=== PATIENT | female | born 1995 | race Caucasian/White ===

== ENCOUNTER 2018-08-20 15:53 | Emergency (ER) | payer SELFPAY ==
[~2018-08-20] VITALS: Ht 162.6 cm; Wt 54.4 kg
--- OUTSIDE RECORDS SUMMARY | 2018-08-20 15:59 | XMS REPORT ---
Author Author AMBREEN BARRIOS [facility] Address [address] [place] [address] Care Team Providers Care Rehab/Pre Vocational Counselor Name Role Phone AMBREEN BARRIOS Unavailable PROBLEMS Type Condition ICD9-CM Code OZX49-WU Code Onset Dates Condition Status SNOMED Code Problem Screening examination for venereal disease V74.5 Active 468991780 Problem Routine gynecological examination V72.31 Active 724963618916735 Problem Other general counseling and advice for contraceptive management V25.09 Active 063290293 Problem Unspecified pediculosis 132.9 Active 37913523 Problem Major depressive disorder, recurrent episode, severe, without mention of psychotic behavior 296.33 Active 17069080 Problem Dyspareunia 625.0 Active 40249099 Problem Problems related to high-risk sexual behavior V69.2 Active 361297146 Problem Posttraumatic stress disorder 309.81 Active 46986200 Problem Unspecified vaginitis and vulvovaginitis 616.10 Active 297869136 ALLERGIES Unknown Allergies SOCIAL HISTORY No smoking Hx information available PLAN OF CARE Activity Details Follow Up 48-72 hours Reason: VITAL SIGNS MEDICATIONS Unknown Medications RESULTS No Results PROCEDURES Procedure Date Ordered Related Diagnosis Body Site TB INTRADERMAL 2016-08-26 N/A TB INTRADERMAL TEST Aug 26, 2016 IMMUNIZATIONS No Known Immunizations
--- OUTSIDE RECORDS SUMMARY | 2018-08-20 15:59 | XMS REPORT ---
Author Author AMBREEN BARRIOS [facility] Address [address] [place] [address] Care Team Providers Care Batt Packer Name Role Phone AMBREEN BARRIOS Unavailable PROBLEMS Type Condition ICD9-CM Code ZVS50-KE Code Onset Dates Condition Status SNOMED Code Problem Screening examination for venereal disease V74.5 Active 039004586 Problem Routine gynecological examination V72.31 Active 558548329231873 Problem Other general counseling and advice for contraceptive management V25.09 Active 645806823 Problem Unspecified pediculosis 132.9 Active 48201265 Problem Major depressive disorder, recurrent episode, severe, without mention of psychotic behavior 296.33 Active 87407432 Problem Dyspareunia 625.0 Active 13016512 Problem Problems related to high-risk sexual behavior V69.2 Active 537571243 Problem Posttraumatic stress disorder 309.81 Active 13769321 Problem Unspecified vaginitis and vulvovaginitis 616.10 Active 027919633 ALLERGIES Unknown Allergies SOCIAL HISTORY No smoking Hx information available PLAN OF CARE Activity Details Follow Up 48-72 hours Reason: VITAL SIGNS MEDICATIONS Unknown Medications RESULTS No Results PROCEDURES Procedure Date Ordered Related Diagnosis Body Site TB INTRADERMAL TEST Aug 17, 2016 IMMUNIZATIONS No Known Immunizations
--- OUTSIDE RECORDS SUMMARY | 2018-08-20 16:00 | XMS REPORT | Continuity of Care Document ---
Author Author [facility] Address Unknown Phone Unavailable Allergies There is no data. Medications There is no data. Problems Date Dx Coded Attending Type Code Diagnosis Diagnosed By 02/08/2012 309.81 AN PTSD 02/08/2012 309.81 AN PTSD 02/08/2012 AMBREEN BARRIOS DO 309.81 AN PTSD 02/08/2012 309.81 AN PTSD 02/08/2012 309.81 AN PTSD 02/08/2012 309.81 AN PTSD 02/08/2012 309.81 AN PTSD 02/08/2012 ROCK STEVENSON APRN 309.81 AN PTSD 02/08/2012 VIRI JORDAN APRN 309.81 AN PTSD 10/04/2012 AMBREEN BARRIOS DO V72.31 ROUTINE GYNECOLOGICAL EXAMINATION 10/04/2012 AMBREEN BARRIOS DO V74.5 STD SCREEN 10/04/2012 V72.31 ROUTINE GYNECOLOGICAL EXAMINATION 10/04/2012 V74.5 STD SCREEN 10/04/2012 V72.31 ROUTINE GYNECOLOGICAL EXAMINATION 10/04/2012 V74.5 STD SCREEN 10/04/2012 V72.31 ROUTINE GYNECOLOGICAL EXAMINATION 10/04/2012 V74.5 STD SCREEN 10/04/2012 V72.31 ROUTINE GYNECOLOGICAL EXAMINATION 10/04/2012 V74.5 STD SCREEN 10/04/2012 ROCK STEVENSON APRN V72.31 ROUTINE GYNECOLOGICAL EXAMINATION 10/04/2012 ROCK STEVENSON APRN A V74.5 STD SCREEN 10/04/2012 VIRI JORDAN APRN V72.31 ROUTINE GYNECOLOGICAL EXAMINATION 10/04/2012 VIRI JORDAN APRN V74.5 STD SCREEN 10/25/2012 296.33 MO DEPRESSIVE RECURRENT SEVERE W/O PSYCHOTIC BEHAVIOR 10/25/2012 296.33 MO DEPRESSIVE RECURRENT SEVERE W/O PSYCHOTIC BEHAVIOR 10/25/2012 296.33 MO DEPRESSIVE RECURRENT SEVERE W/O PSYCHOTIC BEHAVIOR 10/25/2012 296.33 MO DEPRESSIVE RECURRENT SEVERE W/O PSYCHOTIC BEHAVIOR 10/25/2012 ROCK STEVENSON APRN A 296.33 MO DEPRESSIVE RECURRENT SEVERE W/O PSYCHOTIC BEHAVIOR 10/25/2012 VIRI JORDAN APRN L 296.33 MO DEPRESSIVE RECURRENT SEVERE W/O PSYCHOTIC BEHAVIOR 03/18/2013 616.10 VAGINITIS AND VULVOVAGINITIS UNSPECIFIED 03/18/2013 625.0 DYSPAREUNIA 03/18/2013 V25.09 CONTRACEPTIVE COUNSELING - GENERAL 03/18/2013 V69.2 HIGH-RISK SEXUAL BEHAVIOR 03/18/2013 ERASMO STEVENSON APRNIDI A 616.10 VAGINITIS AND VULVOVAGINITIS UNSPECIFIED 03/18/2013 ERASMO STEVENSON APRNIDI A 625.0 DYSPAREUNIA 03/18/2013 ROCK STEVENSON APRN A V25.09 CONTRACEPTIVE COUNSELING - GENERAL 03/18/2013 ERASMO STEVENSON APRNIDI A V69.2 HIGH-RISK SEXUAL BEHAVIOR 03/18/2013 VIRI JORDAN APRN L 616.10 VAGINITIS AND VULVOVAGINITIS UNSPECIFIED 03/18/2013 VIRI JORDAN APRN L 625.0 DYSPAREUNIA 03/18/2013 VIRI JORDAN APRN L V25.09 CONTRACEPTIVE COUNSELING - GENERAL 03/18/2013 VIRI JORDAN APRN L V69.2 HIGH-RISK SEXUAL BEHAVIOR 12/24/2013 VIRI JORDAN APRN L 132.9 PEDICULOSIS UNSPECIFIED Procedures Code [place] [address] ROUTINE VENIPUNCTURE 10/04/2012 33788 URINE TEST (IN- HOUSE) 10/04/2012 64282 TRICHOMONAS (IN-HOUSE) 10/04/2012 40728 HEPATITIS PROFILE 10/04/2012 73828 SYPHILLIS-STATE LAB 10/04/2012 58284 HIV ANTIBODIES (RML) 10/04/2012 66040 CULTURE UROGENITAL 10/04/2012 62369 GC/CHLAM PROBE (STATE) 10/04/2012 51655 URINE TEST (IN- HOUSE) 03/18/2013 76949 TRICHOMONAS (IN-HOUSE) 03/18/2013 33530 GC/CHLAM PROBE (STATE) 03/20/2013 90134 CULTURE UROGENITAL 03/20/2013 Results There is no data. Encounters ACCT No. Visit Date/Time Discharge Status Pt. Type Provider Facility Loc./Unit Complaint [id number] 12/24/2013 13:48:00 12/24/2013 23:59:59 CLS Outpatient VIRI JORDAN APRN [id number] 03/18/2013 11:41:00 03/18/2013 23:59:59 CLS Outpatient ROCK STEVENSON APRN [id number] 10/25/2012 10:48:00 10/25/2012 23:59:59 CLS Outpatient [id number] 10/04/2012 09:48:00 10/04/2012 23:59:59 [place] [id number] 02/08/2012 15:07:00 02/08/2012 23:59:59 CLS Outpatient [id number] 02/08/2012 15:07:00 02/08/2012 23:59:59 CLS Outpatient [id number] 03/18/2013 11:41:00 Document Registration [id number] 10/25/2012 10:48:00 Document Registration [id number] 10/04/2012 09:48:00 Document Registration
[2018-08-20] MEDS ORDERED: LACTATED RINGERS 1,000 ML IV ONE (17:20)
[2018-08-20 17:29] LABS: BASOPHILS % (AUTO) 0 % (0-10); EOSINOPHILS # (AUTO) 0.1 10^3/uL (0.0-0.3); EOSINOPHILS % (AUTO) 0 % (0-10); HEMATOCRIT 42 % (35-52); HEMOGLOBIN 14.1 G/DL (11.5-16.0); LYMPHOCYTES # (AUTO) 0.5 X 10^3 (1.0-4.0); LYMPHOCYTES % (AUTO) 4 % (12-44); MEAN CORPUSCULAR HEMOGLOBIN 30 PG (25-34); MEAN CORPUSCULAR HGB CONC 34 G/DL (32-36); MEAN CORPUSCULAR VOLUME 88 FL (80-99); MEAN PLATELET VOLUME 10.6 FL (7.4-10.4); MONOCYTES # (AUTO) 0.4 X 10^3 (0.0-1.0); MONOCYTES % (AUTO) 3 % (0-12); NEUTROPHILS # (AUTO) 11.6 X 10^3 (1.8-7.8); NEUTROPHILS % (AUTO) 92 % (42-75); PLATELET COUNT 288 10^3/uL (130-400); RED CELL DISTRIBUTION WIDTH 12.7 % (10.0-14.5); WHITE BLOOD COUNT 12.5 10^3/uL (4.3-11.0)
--- NOTE | 2018-08-20 17:29 | ED Abdominal Pain ---
General Chief Complaint: Abdominal/GI Problems Stated Complaint: LOWER ABD PAIN Nursing Triage Note: pt arrived POV with family with complaints of lower abd and pelvic pain that radiates to back. Pain comes and goes. Pt states that she is ending her period and is very light but there is big clots in her stool. Pt states she is passing gas and last BM was today. Pt states pain is excruciating when it hits her. No burning when she urinates Sepsis Screen: No Definite Risk Source of Information: Patient Exam Limitations: No Limitations ([facility]) History of Present Illness Date Seen by Provider: Aug 20, 2018 Time Seen by Provider: 17:13 Initial Comments The patient presents to ER by private conveyance with chief complaint she's having some abdominal pain that started late last night accompanied by diarrhea and nausea and vomiting. The pain is described as intermittent, cramping. She is at the very end of her period and was just about tapered off work pad would go home today without any significant blood on it and now she's noticing some blood in the stool and so she is not sure if it's from her period or from her bowels. She has no history of abdominal problems. She's had a . She denies being sexually active but she is also not on a control. She denies dyspareunia or discharge. She denies dysuria. She's not taking anything for the pain, nausea, diarrhea. She's not had any fevers chills cough or recent illnesses, colds etc. No sick contacts. She's not ate or drank any dubious source of food or water. Last intake was around noon. At rest her pain is 0 at worst it's about a 9 out of 10. Presently she is having some nausea but no abdominal discomfort. Movement does not bother her. She has also been having a lot of belching. ([facility]) Allergies and Home Medications Allergies Coded Allergies: No Known Drug Allergies (Unverified , 08/20/18) Patient Home Medication List Home Medication List Reviewed: Yes ([facility]) Review of Systems Review of Systems Constitutional: No chills, No fever EENTM: No Blurred Vision, No Double Vision Respiratory: Denies Cough, Denies Orthopnea Cardiovascular: Denies Chest Pain, Denies Lightheadedness Gastrointestinal: See HPI, Abdominal Pain; Denies Blood Streaked Stools, Denies Constipated; Diarrhea, Nausea, Poor Fluid Intake, Vomiting, Other (blood in the toilet bowl) Genitourinary: Denies Burning, Denies Discharge, Denies Drainage Musculoskeletal: No back pain, No joint pain ([facility]) Past Iuxgfbp-Litarb-Vdgrfv Hx Patient Social History Alcohol Use: Denies Use Recreational Drug Use: No Smoking Status: Current Everyday Smoker Type Used: Electronic/Vapor 2nd Hand Smoke Exposure: Yes Recent Foreign Travel: No Contact w/Someone Who Travel: No Recent Infectious Disease Expo: No Recent Hopitalizations: No Physical Abuse: No Sexual Abuse: No ([facility]) Past Medical History Surgeries: Yes Tonsillectomy Respiratory: No Currently Using CPAP: No Cardiac: No Neurological: No Genitourinary: No Gastrointestinal: No Musculoskeletal: No Endocrine: No HEENT: No Cancer: No Psychosocial: No Integumentary: No Blood Disorders: No ([facility]) Physical Exam Vital Signs Vital Signs - First Documented 08/20/18 16:08 Temp 99.4 Pulse 94 Resp 20 B/P (MAP) 124/73 (90) Pulse Ox 99 O2 Delivery Room Air (BERNOT,ZAINA) Vital Signs Capillary Refill : Less Than 3 Seconds ([facility]) Height/Weight/BMI Height: 5'4.00" Weight: 120lbs. oz. 54.845601im; BMI Method:Estimated General Appearance: WD/WN, no apparent distress HEENT: PERRL/EOMI, normal ENT inspection, TMs normal, pharynx normal ( oropharynx is mildly dry) Neck: full range of motion, normal inspection Respiratory: lungs clear, normal breath sounds, no respiratory distress, no accessory muscle use Cardiovascular: normal peripheral pulses, regular rate, rhythm, no edema Peripheral Pulses: 2+ Radial Pulses (R), 2+ Radial Pulses (L) Gastrointestinal: normal bowel sounds, non tender, soft Neurologic/Psychiatric: alert, normal mood/affect, oriented x 3 Skin: normal color, warm/dry ([facility]) Progress/Results/Core Measures Results/Orders Lab Results Laboratory Tests Test 08/20/18 17:05 08/20/18 17:30 Range/Units White Blood Count 12.5 H 4.3-11.0 10^3/uL Red Blood Count 4.70 4.35-5.85 10^6/uL Hemoglobin 14.1 11.5-16.0 G/DL Hematocrit 42 35-52 % Mean Corpuscular Volume 88 80-99 FL Mean Corpuscular Hemoglobin 30 25-34 PG Mean Corpuscular Hemoglobin Concent 34 32-36 G/DL Red Cell Distribution Width 12.7 10.0-14.5 % Platelet Count 288 130-400 10^3/uL Mean Platelet Volume 10.6 H 7.4-10.4 FL Neutrophils (%) (Auto) 92 H 42-75 % Lymphocytes (%) (Auto) 4 L 12-44 % Monocytes (%) (Auto) 3 0-12 % Eosinophils (%) (Auto) 0 0-10 % Basophils (%) (Auto) 0 0-10 % Neutrophils # (Auto) 11.6 H 1.8-7.8 X 10^3 Lymphocytes # (Auto) 0.5 L 1.0-4.0 X 10^3 Monocytes # (Auto) 0.4 0.0-1.0 X 10^3 Eosinophils # (Auto) 0.1 0.0-0.3 10^3/uL Basophils # (Auto) 0.0 0.0-0.1 10^3/uL Neutrophils % (Manual) 92 % Lymphocytes % (Manual) 4 % Monocytes % (Manual) 3 % Eosinophils % (Manual) 1 % Basophils % (Manual) 0 % Band Neutrophils 0 % Blood Morphology Comment NORMAL Sodium Level 139 135-145 MMOL/L Potassium Level 3.6 3.6-5.0 MMOL/L Chloride Level 107 98-107 MMOL/L Carbon Dioxide Level 21 21-32 MMOL/L Anion Gap 11 5-14 MMOL/L Blood Urea Nitrogen 9 7-18 MG/DL Creatinine 0.70 0.60-1.30 MG/DL Estimat Glomerular Filtration Rate > 60 BUN/Creatinine Ratio 13 Glucose Level 118 H 70-105 MG/DL Calcium Level 9.2 8.5-10.1 MG/DL Corrected Calcium 8.5-10.1 MG/DL Magnesium Level 1.9 1.8-2.4 MG/DL Total Bilirubin 0.8 0.1-1.0 MG/DL Aspartate Amino Transf (AST/SGOT) 16 5-34 U/L Alanine Aminotransferase (ALT/SGPT) 12 0-55 U/L Alkaline Phosphatase 69 40-136 U/L C-Reactive Protein High Sensitivity 0.55 H 0.00-0.50 MG/DL Total Protein 7.1 6.4-8.2 GM/DL Albumin 4.6 H 3.2-4.5 GM/DL Lipase 16 8-78 U/L Serum Test, Qualitative NEGATIVE NEGATIVE Urine Color YELLOW Urine Clarity SLIGHTLY CLOUDY Urine pH 5 5-9 Urine Specific [place] 1.015 L 1.016-1.022 Urine Protein 1+ H NEGATIVE Urine Glucose (UA) NEGATIVE NEGATIVE Urine Ketones NEGATIVE NEGATIVE Urine Nitrite NEGATIVE NEGATIVE Urine Bilirubin NEGATIVE NEGATIVE Urine Urobilinogen NORMAL NORMAL MG/DL Urine Leukocyte Esterase 1+ H NEGATIVE Urine RBC (Auto) 5+ H NEGATIVE Urine RBC 25-50 H /HPF Urine WBC RARE /HPF Urine Squamous Epithelial Cells 2-5 /HPF Urine Crystals NONE /LPF Urine Bacteria NEGATIVE /HPF Urine Casts NONE /LPF Urine Mucus NEGATIVE /LPF Urine Culture Indicated NO Urine Opiates Screen NEGATIVE NEGATIVE Urine Oxycodone Screen NEGATIVE NEGATIVE Urine Methadone Screen NEGATIVE NEGATIVE Urine Propoxyphene Screen NEGATIVE NEGATIVE Urine Barbiturates Screen NEGATIVE NEGATIVE Ur Tricyclic Antidepressants Screen NEGATIVE NEGATIVE Urine Phencyclidine Screen NEGATIVE NEGATIVE Urine Amphetamines Screen NEGATIVE NEGATIVE Urine Methamphetamines Screen NEGATIVE NEGATIVE Urine Benzodiazepines Screen NEGATIVE NEGATIVE Urine Cocaine Screen NEGATIVE NEGATIVE Urine Cannabinoids Screen POSITIVE H NEGATIVE (ZAINA WILKES) Medications Given in ED Current Medications Medications Dose Ordered Sig/Juvenal Route Start Time Stop Time Status Last Admin Dose Admin Iohexol 100 ml ONCE ONCE IV 08/20/18 18:30 08/20/18 18:31 DC 08/20/18 18:37 100 ML Lactated Ringer's 1,000 ml @ 0 mls/hr Q0M ONCE IV 08/20/18 17:20 08/20/18 17:24 DC 08/20/18 17:43 1,000 MLS/HR Ondansetron HCl 4 mg ONCE ONCE IVP 08/20/18 17:30 08/20/18 17:31 DC 08/20/18 17:43 4 MG Sodium Chloride 100 ml ONCE ONCE IV 08/20/18 18:30 08/20/18 18:31 DC 08/20/18 18:37 85 ML (ZAINA WILKES) Vital Signs/I&O 08/20/18 16:08 Temp 99.4 Pulse 94 Resp 20 B/P (MAP) 124/73 (90) Pulse Ox 99 O2 Delivery Room Air (ZAINA WILKES) Blood Pressure Mean: 90 Progress Progress Note #1: Time: 17:30 Progress Note Mild elevation in temperature and heart rate of 94. If she has white count she could meet SIRS criteria. We'll get some labs to include a lipase although her pain is more in her lower abdomen. Viral gastroenteritis be the most common possibility. The blood in the stool could be from her currently being on her period. We'll get a bedside test. Urinalysis and some Zofran. Progress Note #2: Time: 18:19 Progress Note Labs stool look like viral gastritis be the most likely differential but the patient's having quite a bit of anxiety. She's not having any severe pain right now we'll ahead and obtain a CT of her abdomen pelvis with contrast and Zaina Wilkes, nurse practitioner we will look for the results and treat appropriately. If not we will treat for viral gastroenteritis with nausea medicine, Imodium if diarrhea persists for more than 48 hours, oral fluids, Tylenol, Motrin, Gas-X. We will offer to do a fecal occult blood test by rectal exam and the patient has declined and said she would follow-up primary care if this persisted. ([facility]) Diagnostic Imaging Diagonstic Imaging: CT (with contrast) Plain Films/CT/US/NM/MRI: abdomen, pelvis Reviewed: Reviewed by Me ([facility]) Comments [facility] [place] NAME: MISAEL HOFFMAN I [facility] REC#: [id number] PT STATUS: REG ER : 1995 PHYSICIAN: [facility] MD ADMIT DATE: 08/20/18/ER Draft Date of Exam:08/20/18 CT ABDOMEN/PELVIS W PROCEDURE: CT abdomen and pelvis with contrast. TECHNIQUE: Multiple contiguous axial images were obtained through the abdomen and pelvis after administration of intravenous contrast. INDICATION: Lower abdominal pain x1 day. FINDINGS: Lung bases are clear. Liver appears normal. Gallbladder is present. Spleen is not enlarged. Pancreas is normal. Kidneys and adrenals appear normal. There is large amount of food residue in the stomach. There is fluid present throughout the small bowel. Colon is unremarkable. There is a small amount of free fluid in the cul-de-sac. Uterus and urinary bladder appear normal. Adnexa are unremarkable. There is no evidence for appendicitis. IMPRESSION: There is a small amount of free fluid. CT abdomen and pelvis otherwise unremarkable. Dictated on workstation # [id number] Dict: 08/20/181850 Trans: 08/20/181854 [id number] Interpreted by: DOMINICK AREVALO MD Electronically signed by: (ZAINA WILKES) Transfer of Care Time: 18:22 Care transferred to: MANNY Grijalva ([facility]) Departure Impression Primary Impression: Gastroenteritis and colitis, viral Disposition: HOME, SELF-CARE Condition: Stable Departure-Patient Inst. Patient Instructions: Viral Gastroenteritis, Adult (DC) Add. Discharge Instructions: Drink lots of fluids, sports drinks etc. Eat a bland diet such as a brat diet, bananas, rice, applesauce and toast. Use Tylenol and Motrin for abdominal pain as well as Gas-X as needed. Use Zofran 1 tablet every 6 hours as needed for nausea or vomiting. If the diarrhea persists for more than 48 hours you can start using Imodium 2 tablets initially followed by one tablet every 4 hours that she still have a watery stool. Follow-up with primary care if not improving and 5-7 days. If you continue to have blood in the stool then you should follow-up with primary care for appropriate outpatient workup. All discharge instructions reviewed with patient and/or family. Voiced understanding. Scripts Ondansetron HCl (Zofran) 4 Mg Tab 4 MG PO Q4H PRN for NAUSEA/VOMITING-1ST LINE, #14 TAB Prov: ZAINA WILKES 08/20/18 [facility] Aug 20, 2018 17:29 ZAINA WILKES Aug 20, 2018 19:03
[2018-08-20] MEDS ORDERED: ONDANSETRON 4 MG/2 ML (SDV) Z0FRAN IVP ONE (17:30)
[2018-08-20 17:40] LABS: BILIRUBIN,URINE NEGATIVE (NEGATIVE); CLARITY,URINE SLIGHTLY CLOUDY; COLOR,URINE YELLOW; GLUCOSE, URINE (UA) NEGATIVE (NEGATIVE); KETONES,URINE NEGATIVE (NEGATIVE); LEUKOCYTE ESTERASE ,URINE 1+ (NEGATIVE); NITRITE,URINE NEGATIVE (NEGATIVE); PH,URINE 5 (5-9); PROTEIN,URINE 1+ (NEGATIVE); UROBILINOGEN,URINE NORMAL (NORMAL)
[2018-08-20 17:42] LABS: ALANINE AMINOTRANSFERASE 12 U/L (0-55); ALBUMIN 4.6 GM/DL (3.2-4.5); ALKALINE PHOSPHATASE 69 U/L (40-136); BILIRUBIN,TOTAL 0.8 MG/DL (0.1-1.0); BUN/CREATININE RATIO 13; CALCIUM 9.2 MG/DL (8.5-10.1); CARBON DIOXIDE 21 MMOL/L (21-32); CHLORIDE 107 MMOL/L (98-107); GFR ESTIMATED > 60; GLUCOSE 118 MG/DL (70-105); LIPASE 16 U/L (8-78); MAGNESIUM 1.9 MG/DL (1.8-2.4); POTASSIUM 3.6 MMOL/L (3.6-5.0); SODIUM 139 MMOL/L (135-145); TOTAL PROTEIN 7.1 GM/DL (6.4-8.2)
[2018-08-20 17:45] LABS: BAND NEUTROPHILS 0 %; BASOPHILS % (MANUAL) 0 %; EOSINOPHILS % (MANUAL) 1 %; LYMPHOCYTES % (MANUAL) 4 %; MONOCYTES % (MANUAL) 3 %; NEUTROPHILS % (MANUAL) 92 %
[2018-08-20 17:46] LABS: RBC MORPH NORMAL
[2018-08-20 17:51] LABS: BACTERIA,URINE NEGATIVE /HPF; RBC,URINE 25-50 /HPF; WBC,URINE RARE /HPF
[2018-08-20 17:52] LABS: AMPHETAMINE SCREEN, URINE NEGATIVE (NEGATIVE); BARBITURATE SCREEN URINE NEGATIVE (NEGATIVE); BENZODIAZEPINES SCREEN URINE NEGATIVE (NEGATIVE); CANNABINOID SCREEN, URINE POSITIVE (NEGATIVE); COCAINE SCREEN URINE NEGATIVE (NEGATIVE); METHADONE STAT NEGATIVE (NEGATIVE); METHAMPHETAMINE SCREEN URINE S NEGATIVE (NEGATIVE); OPIATE SCREEN URINE NEGATIVE (NEGATIVE); OXYCODONE STAT NEGATIVE (NEGATIVE); PROPOXYPHENE STAT NEGATIVE (NEGATIVE); TRICYCLIC ANTIDEPRESSANTS SCRE NEGATIVE (NEGATIVE)
[2018-08-20] MEDS ORDERED: IOHEXOL 350 MG/ML 100 ML (OMNIPAQUE 350) VIAL IV ONE (18:30)
[2018-08-20] MEDS ORDERED: RECEIVED CONTRAST (Hold Metformin) IV SCH (18:30)
[2018-08-20] MEDS ORDERED: NS 100 ML (IVPB) BAG IV ONE (18:30)
--- NOTE | 2018-08-20 18:55 | Diagnostic Imaging Report ---
PROCEDURE: CT abdomen and pelvis with contrast. TECHNIQUE: Multiple contiguous axial images were obtained through the abdomen and pelvis after administration of intravenous contrast. INDICATION: Lower abdominal pain x1 day. FINDINGS: Lung bases are clear. Liver appears normal. Gallbladder is present. Spleen is not enlarged. Pancreas is normal. Kidneys and adrenals appear normal. There is large amount of food residue in the stomach. There is fluid present throughout the small bowel. Colon is unremarkable. There is a small amount of free fluid in the cul-de-sac. Uterus and urinary bladder appear normal. Adnexa are unremarkable. There is no evidence for appendicitis. IMPRESSION: There is a small amount of free fluid. CT abdomen and pelvis otherwise unremarkable. Dictated by: Dictated on workstation # [id number]
[2018-08-20] MEDS ORDERED: ONDN4T PO (19:03)
[2018-08-20 19:20] VITALS: BP 114/72
== END 2018-08-20 19:20 | disposition home or self-care (01) ==
LOC: ER 15:55
DX: A08.4 Viral intestinal infection, unspecified (principal); F17.290 Nicotine dependence, other tobacco product, uncomplicated; Z98.890 Other specified postprocedural states; Z90.89 Acquired absence of other organs
CPT/HCPCS: 36415; 74177; 80053; 80306; 81000; 83690; 83735; 84703; 85007; 85027; 86141; 96361; 96374